=== PATIENT | male | born 1965 | race Caucasian/White ===

== ENCOUNTER → 2016-07-23 | Outpatient (CLI) | payer OTHER | DX: M54.5 Low back pain (principal); R20.2 Paresthesia of skin; R53.1 Weakness; M99.73 Connective tissue and disc stenosis of intervertebral foramina of lumbar region; M99.74 Connective tissue and disc stenosis of intervertebral foramina of sacral region; M51.87 Other intervertebral disc disorders, lumbosacral region; Z87.39 Personal history of other diseases of the musculoskeletal system and connective tissue | CPT/HCPCS: 72148 ==

== ENCOUNTER 2020-07-21 15:32 | Emergency (ER) | payer OTHER ==
[~2020-07-21 15:32] MED LIST: B-COMPLEX WITH1 EACH PO; BREO ELLIPTA 11 EACH INH; CYMBALTA60 MG PO; EFFEXOR XR75 MG PO; FLOMAX0.4 MG PO; LYRICA150 MG PO; MEN 50 PLUS MU1 EACH PO; MINIPRESS2 MG PO; NEPHROCAPS SOFTG1 MG PO; NORCO 10-325 T1 EACH PO; PERCOCET 5/325 T1 EA PO; SAW PALMETTO450 MG PO; SKELAXIN800 MG PO; SYNTHROID100 MCG PO; TRAZODONE HCL100 MG PO; VITAMIN B-125000 MC1 PO
[2020-07-21 17:12] LABS: HEMOGLOBIN 16.3 gm/dl (14.0-17.5); RED BLOOD COUNT 5.51 M/UL (4.20-5.50); WHITE BLOOD COUNT 13.6 K/UL (4.5-11.0)
[2020-07-21 17:31] LABS: BUN/CREATININE RATIO 7 (0-10)
[2020-07-21] MEDS ORDERED: ZOFRAN ODT 4 MG4 MG PO (21:24)
[2020-07-21] MEDS ORDERED: BENTYL 20MG TAB20 MG PO (21:24)
[2020-07-21] MEDS ORDERED: PROTONIX40 M1 PO (21:24)
== END 2020-07-21 21:48 | disposition home or self-care (01) ==
LOC: ER1 15:32
PROVIDERS: Physician Assistant
DX: R10.84 Generalized abdominal pain (principal); R10.812 Left upper quadrant abdominal tenderness; R10.811 Right upper quadrant abdominal tenderness; R11.2 Nausea with vomiting, unspecified; E11.9 Type 2 diabetes mellitus without complications; Z90.49 Acquired absence of other specified parts of digestive tract
CPT/HCPCS: 36415; 80053; 81001; 82150; 82550; 82553; 83690; 83874; 84484; 85025; 93005; 96374; 96375; 96376; 99284; J2270; J2405; Q9967

== ENCOUNTER → 2021-07-07 | Outpatient (CLI) | payer OTHER ==
[~2021-07-07] MED LIST changes: +BENTYL 20MG TAB20 MG PO; +PROTONIX40 M1 PO; +ZOFRAN ODT 4 MG4 MG PO
== END ==
LOC: RAD 13:05
DX: R06.02 Shortness of breath (principal); R25.2 Cramp and spasm; Z86.16 Personal history of COVID-19
CPT/HCPCS: 71046; 93005

== ENCOUNTER → 2021-08-02 | Outpatient (CLI) | payer OTHER | LOC: HEART 5 09:30 | DX: R60.0 Localized edema (principal); I73.9 Peripheral vascular disease, unspecified ==

== ENCOUNTER → 2021-10-02 | Outpatient (CLI) | payer OTHER | LOC: EMI 09-26 08:57 | DX: R41.3 Other amnesia (principal); M51.16 Intervertebral disc disorders with radiculopathy, lumbar region; M50.10 Cervical disc disorder with radiculopathy, unspecified cervical region; M48.02 Spinal stenosis, cervical region | CPT/HCPCS: 70553; 72141; 72146; 72148; A9577 ==